=== PATIENT | female | born 1995 | race African-American/Black ===

== ENCOUNTER 2020-08-05 02:02 | Emergency (ER) | payer MEDICAID, SELFPAY ==
[~2020-08-05] VITALS: Ht 172.7 cm; Wt 61.2 kg
[2020-08-05 02:04] VITALS: BP 129/86; Ht 172.7 cm; Wt 61.2 kg
== END 2020-08-05 03:06 | disposition home or self-care (01) ==
LOC: ED 02:02
DX: R19.7 Diarrhea, unspecified (principal); Z20.828 Contact with and (suspected) exposure to other viral communicable diseases
CPT/HCPCS: U0003